=== PATIENT | male | born 1995 | race Two or more races ===

== ENCOUNTER 2024-08-17 00:25 | Emergency (ER) | payer OTHER ==
[~2024-08-17] VITALS: Ht 167.6 cm; Wt 70.0 kg
[2024-08-17] MEDS: TraMADol HCL 50 MG TABLET PO ONE (02:00)
[2024-08-17] MEDS: FLUORESCEIN SODIUM 1 MG STRIP OU ONE (02:15)
[2024-08-17 03:35] VITALS: BP 126/77; PULSE 74; RESP 18; TEMP 97.9; O2SAT 96
== END 2024-08-17 04:07 ==
LOC: EMS 00:25
DX: T54.2X1A Toxic effect of corrosive acids and acid-like substances, accidental (unintentional), initial encounter (principal); T26.61XA Corrosion of cornea and conjunctival sac, right eye, initial encounter; Y93.89 Activity, other specified; Y92.89 Other specified places as the place of occurrence of the external cause; Y99.8 Other external cause status
CPT/HCPCS: 99284; Z7502; Z7610